=== PATIENT | female | born 1965 | race Hispanic/Latino ===

== ENCOUNTER 2016-12-20 01:59 | Inpatient (IN) ==
[2016-12-20 03:27] LABS: MANUAL DIFF NEEDED? NO
[2016-12-20 03:29] LABS: BASO% 0.9 % (0.0-0.8); EOS# 0.35 X1000 (0.0-0.7); HEMATOCRIT 40.1 % (37.0-47.0); HEMOGLOBIN 13.8 g/dL (12.0-16.0); IMM GRAN# 0.03 X1000 (0.0-0.04); IMM GRAN% 0.4 % (0.0-0.5); LYMPH# 2.82 X1000 (1.2-3.4); LYMPH% 40.3 % (20.5-51.1); MCH 31.2 PG (27-31); MCHC 34.4 g/dL (33-37); MCV 90.5 FL (81-99); MONO# 0.49 X1000 (0.11-0.59); MPV 10.6 FL (7.4-10.4); NEUT% 46.4 % (42.2-75.2); PLT 268 X1000 (130-400); RBC 4.43 XMIL (4.2-5.4)
[2016-12-20 03:43] LABS: INR 0.88; PROTIME 9.2 Seconds (9.2-11.7); PTT 25.9 Seconds (22.0-36.0)
[2016-12-20 04:03] LABS: AGAP 13; ALBUMIN 4.2 g/dL (3.5-5.0); ALKALINE PHOSPHATASE 141 U/L (32-104); BUN 14 mg/dL (8-22); CALCIUM 9.2 mg/dL (8.8-10.2); CHLORIDE 100 mmol/L (98-107); COSMO 285; GOT 13 U/L (10-30); GPT 14 U/L (10-36); SODIUM 138 mmol/L (136-145); TCO2 25 mmol/L (25-35); TOTAL BILIRUBIN 0.42 mg/dL (0.20-1.00); TOTAL PROTEIN 7.8 g/dL (6.3-8.3)
[2016-12-20] MEDS ORDERED: ASPIRIN PO ONE (04:07)
--- NOTE | 2016-12-20 04:08 | PROVIDER DOCUMENTATION ---
This chart was entered by Pema Benedict Scribe, acting as scribe for Blue Ng MD. HPI-General Adult - General Chief Complaint: General Adult Stated Complaint: BODY CHILLS, COUGH, VOMITING Time Seen by Provider: 12/20/16 02:25 Source: patient Allergies/Adverse Reactions: Patient Allergies Allergy/AdvReac Type Severity Reaction Status Date / Time No Known Allergies Allergy Verified 12/15/12 19:27 Home Medications: Home Medication List Medication Instructions Recorded Confirmed Last Taken Type Glimepiride 4 mg PO BID 12/15/12 12/20/16 12/19/16 History Lisinopril/Hydrochlorothiazide 1 each PO DAILY 12/15/12 12/20/16 12/19/16 History [Lisinopril-Hctz 20-12.5 mg Tab] Metformin HCl 1,000 mg PO BID 12/15/12 12/20/16 12/19/16 History PRAVAstatin [Pravachol] 40 mg PO DAILY 12/15/12 12/20/16 12/19/16 History Nabumetone 1 tab PO BID 12/20/16 12/20/16 12/19/16 History Pioglitazone HCl [Actos] 45 mg PO DAILY 12/20/16 12/20/16 12/19/16 History - History of Present Illness -Gen Adult Nature of Presenting Problems: 51 Y/O F presents to ED with General C/o. Pt c/o of right sided facial and right arm numbness. Stated that it began around midnight, First time this occurred. States blurry vision occasionally. Denies any photophobia, sore throat , cough,fever, respiratory issues, ABD pain. Location of Pain/Injury: reports: face, upper extremity Pain Radiation: reports: no radiation Quality of Pain: reports: other (numbness and tingling) Severity: reports: moderate Onset/Duration: reports: just prior to arrival, 1-3 hours ago, this morning Timing: reports: still present Associated Symptoms: reports: arm pain, weakness. denies: fever/chills Review of Systems - Adult - REVIEW OF SYSTEMS - ADULT Constitutional: denies: chills, fever Eyes: reports: no symptoms reported Ears, Nose, Mouth & Throat: reports: no symptoms reported Cardiovascular: reports: no symptoms reported Respiratory: reports: no symptoms reported Gastrointestinal: reports: no symptoms reported Genitourinary: reports: no symptoms reported Musculoskeletal: reports: no symptoms reported Integumentary: reports: no symptoms reported Neurological: reports: numbness, other (weakness) Psychiatric: reports: no symptoms reported Endocrine: reports: no symptoms reported Hematologic/Lymphatic: reports: no symptoms reported Allergic/Immunologic: reports: no symptoms reported All Other Systems: Reviewed and Negative Past History - Adult - PAST MEDICAL HISTORY-ADULT Review of Records: reports: Old Records Reviewed, Nursing Assessment Review, Medications Reviewed, Social history reviewed & non-contributory. Physical Exam-General - CONSTITUTIONAL General Appearance: alert, no apparent distress - EYES Eyes: PERRL/EOMI, pink conjunctivae - HEAD, EARS, NOSE, MOUTH & THROAT HENMT: normocephalic/atraumatic, moist mucous membranes, normal ENT inspection, TMs normal - NECK Neck: non-tender, full range of motion, supple, normal inspection - RESPIRATORY Respiratory: lungs clear, normal breath sounds - CARDIOVASCULAR Cardiovascular: normal peripheral pulses, regular rate, rhythm - GASTROINTESTINAL (ABDOMEN) Abdominal Exam: normal bowel sounds, non tender, soft - LYMPHATIC Lymphatic: no adenopathy - MUSCULOSKELETAL Back Exam: normal inspection Extremity: other (right sided sensory weakness facial and upper extremity) - SKIN Integumentary: normal color, normal turgor, warm/dry - NEUROLOGIC Neurologic: grossly normal - PSYCHIATRIC Psych/Mental Status: normal mood/affect, normal thought content, normal thought process, oriented x 3 Progress - PLAN OF CARE/RESULTS Progress/Plan/Lab Results: Vital Signs - 8 hr 12/20/16 02:04 Temperature 97.5 F L Pulse Rate 101 H Respiratory Rate 17 Blood Pressure 190/81 O2 Sat by Pulse Oximetry 100 Laboratory Results - last 24 hr 12/20/16 02:49 POC Glucose 228 H Orders Category Date Time Status CHEST-2 VIEWS [RAD] Stat Exams 12/20/16 02:25 Ordered Result Diagrams: 12/20/16 03:15 12/20/16 03:15 - EKG 1 Time of EKG reading by physician:: 03:23 EKG Interpretation (*Must complete 3 of following elements*): Normal Rate: 87 Rhythm: sinus [place]: normal QRS: normal [place] Interval: normal ST Wave: normal Prior EKG Comparison: no prior EKG - XRAY 1 XRAY Study: Chest Impression: Normal - CT/MRI 1 CT Study: Head Impression: Normal Departure - Departure Time of Disposition Decision: 04:08 DIAGNOSIS: CVA (cerebral vascular accident) Qualifiers: CVA mechanism: unspecified Qualified Code(s): I63.9 - Cerebral infarction, unspecified Disposition: ADMITTED INPATIENT 09 Certified Medical Emergency: Emergent Condition: Fair Referrals and Follow-Ups: Jordan Bustos MD [Primary Care Provider] - - Critical Care Note This patient required my direct & personal management of CC.: No This chart was documented by the indicated scribe, (Pema Benedict Scrgeovanni) and accurately reflects the services I performed and decisions made by me, Blue Ng MD, as attested by the provider's signature.
--- NOTE | 2016-12-20 05:29 | EKG Report ---
Test Performed on : 12/20/2016 03:13:51 AM Test Reason : cva Blood Pressure : / mmHG Vent. Rate : 087 BPM Atrial Rate : 087 BPM P-R Int : 146 ms QRS Dur : 068 ms QT Int : 368 ms P-R-T Axes : 021 023 025 degrees QTc Int : 442 ms Normal sinus rhythm. Normal ECG No previous ECGs available Unconfirmed Result
--- NOTE | 2016-12-20 05:33 | HISTORY AND PHYSICAL ---
PRIMARY CARE PHYSICIAN: Dr. Bustos CHIEF COMPLAINT: Right face numbness and arm weakness. HISTORY OF PRESENTING ILLNESS: A 51-year-old female with a history of diabetes mellitus type 2 and hyperlipidemia, who presented to the emergency department with a 1-day history of having right- sided face numbness and right arm weakness. She states that it lasted for a few minutes, and subsequently she got worried and came to the emergency department. In the ER, she was evaluated, and due to presenting symptoms, it was thought that she would need hospitalization for further workup of stroke. At the time of my examination, she had denied any headache, fever, chills, chest pain, shortness of breath, hemoptysis, melena, weight changes, but complained of right face numbness and right upper extremity weakness. PAST MEDICAL HISTORY: Diabetes mellitus type 2 and hyperlipidemia. PAST SURGICAL HISTORY: Hernia repair, hysterectomy. ALLERGIES: No known drug allergies. CURRENT MEDICATIONS: Listed in the MAR. SOCIAL HISTORY: She denies any history of smoking. Admits to social alcohol use. Denies any illicit drug use. FAMILY HISTORY: Positive for coronary artery disease in father. REVIEW OF SYSTEMS: Twelve point review of systems listed as in HPI. Other systems negative. PHYSICAL EXAMINATION: GENERAL: Cooperative, friendly female. She is resting comfortably now. VITAL SIGNS: Temperature 97.5 degrees, pulse 101, respirations 17, blood pressure 190/81. She is saturating 100% on room air. HEENT: Atraumatic, normocephalic. Extraocular movements intact. PERRLA. NECK: No masses. CHEST: Clear to auscultation. CARDIOVASCULAR: Regular rate and rhythm. ABDOMEN: Soft. Positive bowel sounds. EXTREMITIES: No edema. NEUROLOGIC: She is awake, alert, oriented x3. Speech is intact. Strength 5/5 in all extremities. GENITOURINARY: No bladder distention. SKIN: Warm. LABORATORIES AND STUDIES: WBC 6.99, hemoglobin 13.8, hematocrit 40.1, platelets 268,000. Sodium 138, potassium 4.0, chloride 100, CO2 25, BUN is 14, creatinine 0.5, glucose is 51. ASSESSMENT: A 51-year-old female with a history of diabetes mellitus type 2 and hyperlipidemia, who presented to the emergency department with a 1-day history of right-sided face numbness and right upper extremity weakness. Due to her presenting symptoms, she will need hospitalization for further stroke workup. 1. Suspected transient ischemic attack. Will need to rule out cerebrovascular accident. 2. Diabetes mellitus type 2. 3. Hyperlipidemia. PLAN: 1. We will admit patient to medical floor with telemetry. 2. Continue with stroke workup. Schedule patient for MRI. 3. Will consult Neurology. 4. Monitor blood glucose. Will put the patient on a sliding scale insulin regimen. 5. Restart her home medications and statins. 6. Put the patient on deep venous thrombosis prophylaxis with sequential compression devices. 7. We will continue to follow and reassess. cc: Naman Kennedy MD
--- NOTE | 2016-12-20 07:27 | Diag Imaging Result Doc PS360 ---
EXAM: HEAD W/O CONTRAST HISTORY: right sided facial and arm numbness TECHNIQUE: Dose reduction protocol COMPARISON: None. FINDINGS: No parenchymal hemorrhage. No epidural or subdural hematoma. No subarachnoid hemorrhage. No mass identified on this noncontrasted exam. No hydrocephalus. No sinus opacification. IMPRESSION: No hemorrhage. Negative brain CT without contrast. A preliminary report was given at 3:47 AM Electronically signed by Kimani Lang 12/20/2016 7:24 AM
--- NOTE | 2016-12-20 07:32 | Diag Imaging Result Doc PS360 ---
EXAM: CHEST-2 VIEWS HISTORY: cough TECHNIQUE: PA and lateral chest COMMENT: There is an ovoid opacity in the perihilar region of the mid left lung. This is apparently in the superior segment of the lower lobe. There has been no appreciable change since 10/20/2013. Otherwise there is no evidence of acute cardiac or pulmonary disease. IMPRESSION: Stable chest. Electronically signed by Jassi Renteria 12/20/2016 7:30 AM
[2016-12-20] MEDS ORDERED: PRINZIDE 20/12.5MG PO SCH (09:00)
[2016-12-20] MEDS: PRAVACHOL PO SCH (09:02)
[2016-12-20] MEDS: HUMULIN R SUBQ SCH ×3 (13:09→20:12)
--- NOTE | 2016-12-20 15:06 | CONSULTATION ---
DATE OF CONSULTATION: 12/20/2016 REQUESTING PHYSICIAN: Dr. Agata Beauchamp. REASON FOR CONSULTATION: For evaluation of stroke. HISTORY OF PRESENT ILLNESS: The patient is a 51-year-old, right-handed female, with a history of diabetes, hypertension, and hyperlipidemia, who was admitted with transient right face, arm, and leg weakness. She was sitting at home when she had the sudden onset of right face, arm, and leg numbness. She also had heaviness of the right arm. The right leg, she reports , was from about the knee down. She says this lasted about 20-30 minutes. It resolved before she made it to the emergency department. She had no other symptoms with this. She denies any headache. Any visual disturbance, any language disturbance. She denies any fevers or chills. No recent illness. No head trauma. PAST MEDICAL HISTORY: Type 2 diabetes, hypertension, hyperlipidemia. FAMILY HISTORY: Notable for stroke in her grandfather and heart disease in her mother. SOCIAL HISTORY: She is a nonsmoker. She denies alcohol or illicit drug use. ALLERGIES: No known drug allergies. CURRENT MEDICATIONS: 1. Lisinopril/HCTZ. 2. Insulin. 3. Pravachol. 4. She received 1 aspirin during this hospital stay. REVIEW OF SYSTEMS: Balance of 12 was conducted and is, otherwise, negative except that mentioned in the HPI. Vital Signs: Her blood pressure is 141/79, pulse 95. She is afebrile. General: She is sitting up in bed in no acute distress. Lots of family at bedside. Neck is supple. No carotid bruits. Cardiovascular: She is mildly tachycardic. Regular rhythm. No murmurs are appreciated. Lungs are clear to auscultation anteriorly. Abdomen soft, nontender. Extremities: Warm and well perfused. No edema. Neurologic: Mental status: She is awake and alert. Appropriately conversant. Her attention and concentration are intact. Her naming is intact. She is oriented. Her pupils are equal, round, and reactive to light. Conjugate gaze and ocular movements are intact. Face is symmetric with equal activation. Facial sensation is intact. Tongue protrudes midline. Shoulder shrug is. No pronator drift. Her strength is 5 in 5 and symmetric throughout. Reflexes are depressed throughout and symmetric. Her toes are mute. No clonus. She has length-dependent reduction of temperature and vibration in the lower extremities. She also reports slightly reduced temperature sensation on the right arm compared to the left arm but, otherwise, there is no asymmetry to sensory testing. Her coordination is intact. DIAGNOSTICS: Her hematology is unremarkable. Sodium 138, potassium 4.0, BUN 14 , creatinine 0.5, glucose 251. AST and ALT are within normal limits. Alkaline phosphatase is 141 , mildly elevated. ' Head CT was personally reviewed. There were no acute findings. EKG shows normal sinus rhythm and a normal EKG. ASSESSMENT AND PLAN: A 51-year-old, right-handed, female who has a history of type 2 diabetes, hypertension, hyperlipidemia, admitted with 30 minutes of right face, arm, and leg numbness and right arm heaviness, now resolved. She may have some slightly reduced sensation to temperature on the right arm but, otherwise, her exam is unremarkable. She was given a full- dose aspirin today. Head CT was negative for acute findings. 1. Transient ischemic attack versus stroke. Recommend checking the typical stroke labs including cholesterol and an A1c. Would allow for permissive hypertension for the first few days while she is here followed by resumption of her home antihypertensive provided her blood pressure tolerates. There is no history of heart disease, and her EKG is normal. So , I do not think a transthoracic echocardiogram is warranted in this patient. Would monitor on telemetry to rule out afib as cause of stroke. An MRI is pending already as are carotid dopplers. I would recommend starting the patient on low-dose aspirin daily for secondary prevention. And otherwise control of her risk factors would be important. PT/OT/ST evaluation. I also discussed exercise with the patient. Stroke symptoms were discussed with the patient and her family. Thank you for this consultation. cc: MD JOSE M Marin
--- NOTE | 2016-12-20 15:37 | ECHO REPORT ---
ORDER DATE: 12/20/2016 ECHOCARDIOGRAPHIC MEASUREMENTS: 1. Interventricular septum 0.9, left ventricular posterior wall 1.0, diastolic diameter 5.0, left atrium 3.3, aorta 2.8. 2. Aortic valve leaflets are trileaflet. Pulmonic valve was normal. Tricuspid valve was normal. Mitral valve was normal. 3. Normal left ventricular cavity size. Estimated ejection fraction of 60%-65%. 4. Peak velocity across the aortic valve less than 2 m/sec. There is no aortic stenosis or regurgitation. There is trace mitral regurgitation, mild tricuspid regurgitation. Peak velocity across the tricuspid valve was 2.6 m/sec. 5. There is no pericardial effusion or obvious intracardiac mass or thrombus seen. cc: MD Naman Galvan MD
--- NOTE | 2016-12-20 16:07 | Diag Imaging Result Doc PS360 ---
EXAM: MRI BRAIN W/O CONTRAST INDICATION: Stroke COMPARISON: None. FINDINGS: There is no evidence of acute infarct. There is mild patchy low attenuation in the periventricular and subcortical white matter likely representing mild microangiopathy. However, it is nonspecific. Assuming that it is mild microangiopathy, it is still slightly advanced for the age of the patient. There is no discrete intracranial mass, mass effect, or intracranial hemorrhage. The surrounding soft tissues and bony structures are essentially unremarkable. IMPRESSION: 1.No evidence of acute infarct. 2.Mild patchy T2/FLAIR hyperintensity that probably represents mild microangiopathy but it is nonspecific. If so, it is still slightly advanced for the age of the patient. Electronically signed by Gregory Garcia 12/20/2016 4:05 PM
[2016-12-20] MEDS: AMARYL PO SCH (20:11)
[2016-12-21 05:37] LABS: MANUAL DIFF NEEDED? NO
[2016-12-21 05:47] LABS: BASO% 0.7 % (0.0-0.8); EOS# 0.28 X1000 (0.0-0.7); HEMATOCRIT 41.8 % (37.0-47.0); LYMPH# 2.49 X1000 (1.2-3.4); LYMPH% 35.3 % (20.5-51.1); MCH 30.4 PG (27-31); MCHC 33.5 g/dL (33-37); MCV 90.9 FL (81-99); MONO# 0.53 X1000 (0.11-0.59); MONO% 7.5 % (1.7-9.3); MPV 10.7 FL (7.4-10.4); NEUT% 52.5 % (42.2-75.2); PLT 284 X1000 (130-400)
[2016-12-21 06:04] LABS: AGAP 16; BUN 14 mg/dL (8-22); CALCIUM 9.1 mg/dL (8.8-10.2); CHLORIDE 99 mmol/L (98-107); COSMO 281; POTASSIUM 4.2 mmol/L (3.5-5.1); SODIUM 138 mmol/L (136-145); TCO2 23 mmol/L (25-35)
[2016-12-21] MEDS: HUMULIN R SUBQ SCH ×2 (07:30→11:01)
--- NOTE | 2016-12-21 08:11 | Carotid Study ---
DATE: 12/20/2016 PROCEDURE: Bilateral duplex and color flow imaging of the carotid arteries was performed using the AudioMicroid E9 ultrasound system with a 9L-D transducer. REFERRING PHYSICIAN: Dr. Manish Kennedy. INTERPRETING PHYSICIAN: Earl Lizama MD. TECH: Clive. INDICATIONS: TIA. OBSERVED DATA RIGHT LEFT Brachial Blood Pressure Carotid Pulse Bruits: Carotid/Sub DIAGRAM OF ULTRASOUND IMAGING R L RIGHT INT EXT INT EXT LEFT Raciel (cm/s) Raciel (cm/s) Subclavian 97/0 Subclavian 121/0 CCA Proximal 85/16 CCA Proximal 85/24 CCA Distal 80/16 CCA Distal 91/30 Bulb 55/13 Bulb 111/32 ICA Proximal 62/18 ICA Proximal 184/31 ICA Mid 62/22 ICA Mid 82/35 ICA Distal 110/45 ICA Distal 97/43 ECA 100/47 ECA 79/10 Vertebral 79/30 A Vertebral 58/19 A ICA/CCA Ratio 1.29 ICA/CCA Ratio 1.07 % Stenosis 0-39 % Stenosis 0-39 FINDINGS: Minimal atherosclerosis noted to bilateral carotid arteries that does not produce a hemodynamically significant flow-limiting stenosis. Both vertebral arteries are antegrade flow. PHYSICIAN INTERPRETATION: No hemodynamically significant flow-limiting stenosis noted to bilateral carotid arteries. cc: MD Naman Valadez MD
[2016-12-21] MEDS: AMARYL PO SCH (08:50)
[2016-12-21] MEDS: PRAVACHOL PO SCH (08:50)
[2016-12-21] MEDS ORDERED: ACTOS PO SCH (09:00)
[2016-12-21] MEDS ORDERED: ASPIRIN EC PO SCH (09:00)
[2016-12-21 09:49] LABS: HEMOGLOBIN A1C 9.5 % (4.8-6.0)
--- NOTE | 2016-12-21 10:54 | PROGRESS NOTE ---
DATE: 12/21/2016 Ms. Natarajan reports no more episodes. She has had stable course since admission. Through her attentive son at the bedside serving as glass tube bender with her permission, I discussed her lab results including pending A1c and significantly elevated cholesterol and triglycerides. We discussed her MRI findings. She does not smoke cigarettes. I encouraged her to be aggressive with management of her risk factors. No new suggestion today from a neurologic standpoint. cc: MD JOSE M Mcclendon III
--- NOTE | 2016-12-21 13:15 | PROGRESS NOTE ---
DATE: 12/21/2016 SUBJECTIVE: Today Ms. Natarajan refers to be doing fine. According to Ms. Natarajan she actually came because she started having generalized chills but no fever and then subsequently she felt the right side of her face and arm went numb. The patient did complain of some urine discomfort including frequency and some burning on urination. OBJECTIVE: Vital signs: Blood pressure is 142/76, pulse of 78, respirations 16 , temperature is 98.0 degrees. General: Ms. Natarajan is a 51-year-old female. She is in bed. She did not seems to be in any distress. HEENT: Mucosa is pink and moist. Anicteric. Acyanotic. Neck: Supple. Chest: Clear. Cardiovascular: Regular rate and rhythm. Abdomen: Soft. Extremities: No pedal edema. CHEMICAL TEST ENGINEER: Patient is alert and is oriented x4. There is no focal neurological deficit. There is no apparent sensation deficit. LABORATORY DATA: WBC is 7.05, hemoglobin is 14.0, platelet count is 284,000. Chemistry is reviewed and completely normal except for glucose which is 180. Total cholesterol is 302. is 212. HDL cholesterol is 35 and LDL cholesterol is 143. Patient A1c is 9.5. IMAGING STUDIES: An MRI of the brain which was done on presentation showed no evidence of acute infarct. Echocardiogram which was done shows an ejection fraction of 60 to 65%. No wall abnormality. Valves were fine. Carotid Doppler studies were done which showed no significant stenosis in any of the carotids. ASSESSMENT: 1. Episode of right face and arm numbness suggestive of transient ischemic attack. MRI and all neurological workup has been negative. Patient has been advised to be aggressive with risk factor management. 2. Diabetes mellitus with A1c of 9.5. Patient is on 3 different types of oral hypoglycemic agents. According to her, the third 1 which is pioglitazone has just been added about a week ago. We will therefore not make any changes. The patient has very good follow up with Dr. Bustos so will advise her to follow up with him within 1 week to check on her labs. 3. Hypertension, controlled. Continue with the RUSH inhibitor with the diuretic. 4. Subjective sensation of chills. The patient also has dysuria with burning. We will treat her symptomatically for UTI and she will follow up with Dr. Bustos, her primary care physician. PLAN: So in general, the patient has been evaluated by neurology. They recommend also to be aggressive with risk factor management. The patient is clinically stable. Does not have any new neurological findings or complaints. She had a workup which has been completely negative. She is going to be discharged home today to follow up with Dr. Bustos. cc: Soren Brock MD MTDD
[2016-12-21 13:17] VITALS: BP 133/82
--- NOTE | 2016-12-21 16:27 | DISCHARGE SUMMARY ---
ADMISSION DATE: 12/20/2016 DISCHARGE DATE: 12/21/2016 DATE OF ADMISSION: 12/20/2016. DATE OF DISCHARGE: 12/21/2016. CONSULTATIONS: Dr. Russell with Neurology. PERTINENT PROCEDURES: Head CT: Negative. Carotid Doppler: Showed no hemodynamically- significant flow limiting stenosis noted to bilateral carotid arteries. Brain MRI: Showed: 1. No evidence of acute infarct. 2. Mildly patchy T2 flair hyperintensity that probably represents mild microangiopathy, but is nonspecific. Still slightly advanced for the age of the patient. Echocardiogram: Showed an ejection fraction of 60-65%. DISCHARGE DIAGNOSES: 1. Episode of right face and arm numbness, suggestion of transient ischemic attack on MRI and all neurological workup has been negative. The patient is advised to be aggressive with risk factor management. 2. Diabetes mellitus with an A1c of 9.5. The patient is on 3 different types of oral hypoglycemic agents. The patient has had a very good follow up with Dr. Bustos. She will also follow up with him in 1 week to check her labs. Needs to evaluate for insulin therapy. 3. Hypertension, controlled. Continue with RUSH inhibitor and diuretic. 4. Suggestive subjective sensation of chills. The patient also had dysuria with burning. Treated symptomatically for a urinary tract infection. Follow up with Dr. Bustos. HOSPITAL COURSE: Briefly, Ms. Natarajan is a 51-year-old female with a history of: 1. Diabetes mellitus type 2. 2. Hyperlipidemia. Followed by Dr. Bustos. Presented to the emergency department with a 1 day of history of having right side facial numbness and right-sided arm weakness that lasted a few minutes. And subsequently, she got worried and came to the emergency department, where she had a full neurological workup that was negative. She was also evaluated by Neurology. They recommended to be aggressive with her risk factor management. The patient is clinically stable. There is no neurological findings or complaints. She is discharged home today to follow up with Dr. Bustos. VITAL SIGNS: Temperature is 97.7 degrees, heart rate 92, respirations 18, blood pressure 133/82, O2 is 100% on room air. DISCHARGE DIET: Diabetic. DISCHARGE MEDICATIONS: As per Dr. Brock: 1. Aspirin 81 mg p.o. daily. 2. Keflex 500 mg p.o. every 12 hours. 3. 4 mg p.o. b.i.d. 4. Lisinopril hydrochlorothiazide 20/12.5 mg tab 1 each p.o. daily. 5. Metformin 1000 mg p.o. b.i.d. 6. 750 mg tab p.o. b.i.d. 7. Actos 45 mg p.o. daily. 8. Pravachol 45 mg p.o. daily. FOLLOWUP CARE: The patient is being discharged home, where she will need to continue with aggressive risk factor management as well as follow up with her primary care physician, Dr. Jordan Bustos in 1 week to obtain laboratory data. SPECIAL INSTRUCTIONS: The patient can return to the emergency department for any worsening of symptoms. DISCHARGE TIME: 30 minutes. This is ANIBAL Santos, doing a discharge summary for Dr. Brock. Dictated by ANIBAL Santos for Soren Brock MD cc: MD oJrdan Hernandez MD [facility]ENTERFlora
[2016-12-21] MEDS ORDERED: KEFLEX PO SCH (21:00)
== END 2016-12-21 13:54 | disposition home or self-care (01) ==
LOC: ED 01:59 → SUATTDRO 05:01 → 4N 05:01
PROVIDERS: ATTEND Internal Medicine